=== PATIENT | male | born 1990 | race Caucasian/White ===

== ENCOUNTER 2019-04-09 17:53 | Emergency (ER) | payer MEDICAID ==
[~2019-04-09] VITALS: Ht 160 cm; Wt 50.0 kg
[2019-04-09 18:03] VITALS: BP 123/85
--- NOTE | 2019-04-09 18:26 | NUR ---
HILARIO. REPORT RECEIVED FROM EMS AND [facility]. SI AND L2K BY [facility]. PT ARGUED WITH FAMILY AND PT'S MOTHER CALLED [facility]. PT WAS AGGRESSIVE TOWARDS FAMILY MEMBER PER EMS AND [facility]. NO MEDICAL COMPLAINTS. DENIES ETOH/DRUGS PER PT. DENIES HI.
--- NOTE | 2019-04-09 18:45 | NUR ---
REPORT GIVEN TO RUFINO PULIDO.
--- NOTE | 2019-04-09 19:11 | NUR ---
PT RESTING ON GURNEY EYES CLOSED. NADN. PT EDUCATED ON NEED FOR URINE SAMPLE
--- NOTE | 2019-04-09 19:22 | NUR ---
telepsych contacted for new consult request.
== END 2019-04-09 20:10 | disposition home or self-care (01) ==
LOC: ED 18:37
DX: F43.24 Adjustment disorder with disturbance of conduct (principal); F32.0 Major depressive disorder, single episode, mild; F41.1 Generalized anxiety disorder
CPT/HCPCS: 99284